=== PATIENT | female | born 1945 | race Caucasian/White ===

== ENCOUNTER 2018-05-04 20:04 | Emergency (ER) | payer MEDICARE, OTHER ==
[2018-05-04 20:41] VITALS: BP 162/75
[2018-05-04] MEDS ORDERED: Cephalexin CAP* 500 MG PO ONE ×2 (20:49)
--- NOTE | 2018-05-04 20:50 | UC ---
Complaint Female HPI - HPI Summary HPI Summary: The patient is a 72-year-old female with the onset today of urinary urgency frequency and dysuria. She denies any back pain. She denies any fever or chills. She denies any nausea or vomiting. She states she has had UTIs in the past and in fact had one a month or 2 ago. She has had kidney stones in the past. - History Of Current Complaint Chief Complaint: UCGU Stated Complaint: URINARY COMPLAINT Time Seen by Provider: 05/04/18 20:10 Hx Obtained From: Patient Onset/Duration: Gradual Onset, Lasting Hours Timing: Constant Severity Initially: Mild Severity Currently: Mild Pain Intensity: 1 Pain Scale Used: 0-10 Numeric Aggravating Factor(s): Urination Associated Signs And Symptoms: Positive: Negative Related Hx: Similar Episode/Dx as: - UTI - Allergies/Home Medications Allergies/Adverse Reactions: Allergies Allergy/AdvReac Type Severity Reaction Status Date / Time morphine Allergy Vomiting Verified 05/04/18 20:22 Sulfa (Sulfonamide Allergy Shortness Verified 05/04/18 20:22 Antibiotics) of Breath Home Medications: Home Medications Amlodipine Besylate [Norvasc] 5 mg PO DAILY 05/04/18 [History Confirmed 05/04/18 ] Aspirin [Adult Aspirin] 81 mg PO DAILY 05/04/18 [History Confirmed 05/04/18] Biotin 5,000 mcg PO DAILY 05/04/18 [History Confirmed 05/04/18] Calcium Carbonate [Calcium] 1,000 mg PO DAILY 05/04/18 [History Confirmed ] Cholecalciferol (Vitamin D3) [Vitamin D3] 5,000 unit PO DAILY 05/04/18 [History Confirmed 05/04/18] Furosemide TAB* [Lasix TAB*] 20 mg PO DAILY 05/04/18 [History Confirmed 05/04/18 ] Hydrochlorothiazide TAB* [Hydrodiuril TAB*] 25 mg PO DAILY 05/04/18 [History Confirmed 05/04/18] Lisinopril TAB* [Prinivil TAB*] 40 mg PO DAILY 05/04/18 [History Confirmed 05/04] Metoprolol Succinate 50 mg PO DAILY 05/04/18 [History Confirmed 05/04/18] [place]-3 Fatty Acids/Fish Oil [Fish Oil 1,000 mg Softgel] 1 each PO BID 05/04/18 [History Confirmed 05/04/18] Omeprazole CAP* [Prilosec CAP* 20 MG] 20 mg PO DAILY 05/04/18 [History Confirmed 05/04/18] Simvastatin [Zocor] 40 mg PO DAILY 05/04/18 [History Confirmed 05/04/18] metFORMIN* [Glucophage 500 MG TAB *] 1,000 mg PO QAM 05/04/18 [History Confirmed 05/04/18] metFORMIN* [Glucophage 500 MG TAB *] 500 mg PO QPM 05/04/18 [History Confirmed 05/04/18] PMH/Surg Hx/FS Hx/Imm Hx Previously Healthy: Yes Endocrine History: Diabetes, Dyslipidemia Cardiovascular History: Hypertension GI/ History: Kidney Stones - Surgical History Surgical History: Yes Surgery Procedure, Year, and Place: right lumpectomy and radiation therapy for breast CA; 1988 hysterectomy; 07/2014 right knee; 11/2014 right hip - Social History Alcohol Use: Occasionally Substance Use Type: None Smoking Status (MU): Never Smoked Tobacco Review of Systems All Other Systems Reviewed And Are Negative: Yes Constitutional: Positive: Negative Skin: Positive: Negative Eyes: Positive: Negative ENT: Positive: Negative Respiratory: Positive: Negative Cardiovascular: Positive: Negative Gastrointestinal: Positive: Negative Genitourinary: Positive: Dysuria, Frequency, Urgency Motor: Positive: Negative Neurovascular: Positive: Negative Musculoskeletal: Positive: Negative Neurological: Positive: Negative Psychological: Positive: Negative Physical Exam Triage Information Reviewed: Yes Appearance: Well-Appearing, No Pain Distress, Well-Nourished Vital Signs: Initial Vital Signs Temp 98.1 F 05/04/18 20:35 Pulse 105 05/04/18 20:35 Resp 20 05/04/18 20:35 BP 162/75 05/04/18 20:35 Pulse Ox 96 05/04/18 20:35 Vital Signs Reviewed: Yes Eyes: Positive: Conjunctiva Clear ENT: Positive: Hearing grossly normal. Negative: Nasal congestion, Nasal drainage, Trismus, Muffled voice, Hoarse voice Neck: Positive: Supple, Nontender Respiratory: Positive: Lungs clear, Normal breath sounds, No respiratory distress, No accessory muscle use Cardiovascular: Positive: RRR, No Murmur Abdomen Description: Positive: Soft. Negative: CVA Tenderness (R), CVA Tenderness (L) Bowel Sounds: Positive: Present Musculoskeletal: Positive: ROM Intact, No Edema Neurological Exam: Normal Skin Exam: Normal Diagnostics - Laboratory Diagnostic Studies Completed/Ordered: UA ++rbcs, ++ protein +++leuks Complaint Female Dx - Differential Dx/Diagnosis Provider Diagnosis: Acute cystitis Discharge - Sign-Out/Discharge Documenting (check all that apply): Patient Departure All imaging exams completed and their final reports reviewed: No Studies - Discharge Plan Condition: Stable Disposition: HOME Prescriptions: Cephalexin CAP* [Keflex CAP*] 500 mg PO BID #12 cap Patient Education Materials: Urinary Tract Infection in Women (DC) Referrals: Non Staff,Doctor [Primary Care Provider] - Additional Instructions: culture pending - Billing Disposition and Condition Condition: STABLE Disposition: Home
--- NOTE | 2018-05-08 07:14 | UC ---
- Progress Note Progress Note: Pt + enterobacter on Cephalexin - resistant to Cefazolin pt should stop cephalexin start cipro - sent to [facility] 05/08/18 Course/Dx - Diagnoses Provider Diagnoses: Acute cystitis Discharge - Sign-Out/Discharge Documenting (check all that apply): Post-Discharge Follow Up All imaging exams completed and their final reports reviewed: No Studies - Discharge Plan Condition: Stable Disposition: HOME Prescriptions: Cephalexin CAP* [Keflex CAP*] 500 mg PO BID #12 cap Patient Education Materials: Urinary Tract Infection in Women (DC) Referrals: Non Staff,Doctor [Primary Care Provider] - Additional Instructions: culture pending - Billing Disposition and Condition Condition: STABLE Disposition: Home
== END 2018-05-04 21:03 | disposition home or self-care (01) ==
LOC: UCCORT 20:04
DX: N30.00 Acute cystitis without hematuria (principal); B96.89 Other specified bacterial agents as the cause of diseases classified elsewhere; Z16.19 Resistance to other specified beta lactam antibiotics; Z16.11 Resistance to penicillins; Z87.442 Personal history of urinary calculi; Z88.5 Allergy status to narcotic agent; Z88.2 Allergy status to sulfonamides; E11.9 Type 2 diabetes mellitus without complications; Z79.84 Long term (current) use of oral hypoglycemic drugs; I10 Essential (primary) hypertension; E78.5 Hyperlipidemia, unspecified; Z85.3 Personal history of malignant neoplasm of breast; Z92.3 Personal history of irradiation
CPT/HCPCS: 81003; 87077; 87086; 87186; 99202; A9270-GY; G0463